=== PATIENT | male | born 1990 | race Caucasian/White ===

== ENCOUNTER 2017-06-22 08:50 | Emergency (ER) | payer SELFPAY ==
[2017-06-22] MEDS ORDERED: ONDANSETRON HCL 4 MG/2 ML SOL ONE (08:52)
[2017-06-22] MEDS ORDERED: PROMETHAZINE HYDROCHLORIDE 25 MG/ML SOL IV ONE (09:00)
[2017-06-22] MEDS ORDERED: ONDANSETRON HCL 4 MG/2 ML SOL IV ONE (09:00)
[2017-06-22] MEDS ORDERED: PROMETHAZINE HYDROCHLORIDE 25 MG/ML SOL ONE (09:00)
[2017-06-22] MEDS ORDERED: SODIUM CHLORIDE 0.9% 1000ML 1,000 ML IV ONE ×3 (09:00→11:55)
[2017-06-22 09:06] LABS: HEMATOCRIT 51 % (39-53); HEMOGLOBIN 17.8 gm/dl (13.5-17.7); MEAN CORPUSCULAR HEMOGLOBIN 30.6 pg (27.0-32.0); MEAN CORPUSCULAR VOLUME 87 fL (80-100)
[2017-06-22] MEDS ORDERED: METOCLOPRAMIDE HYDROCHLORIDE 5 MG/ML SOL IV ONE ×2 (09:13→09:15)
[2017-06-22] MEDS ORDERED: DIPHENHYDRAMINE 50 MG/ML SOL ONE (09:13)
[2017-06-22] MEDS ORDERED: DIPHENHYDRAMINE 50 MG/ML SOL IV ONE ×2 (09:13→09:15)
[2017-06-22] MEDS ORDERED: METOCLOPRAMIDE HYDROCHLORIDE 5 MG/ML SOL ONE (09:13)
[2017-06-22 09:15] LABS: ALBUMIN 4.9 gm/dl (3.4-5.0); BILIRUBIN,TOTAL 0.8 mg/dl (0.2-1.0); CALCIUM 9.4 mg/dl (8.5-10.1); CARBON DIOXIDE 17.2 mEq/L (21-32); CREATININE 1.34 mg/dl (0.80-1.30); POTASSIUM 4.2 mMol/L (3.5-5.1); TOTAL PROTEIN 8.5 gm/dl (6.4-8.2)
[2017-06-22 09:16] LABS: BAND NEUTROPHILS % (MANUAL) 7 %; BASOPHILS % (MANUAL) 0 % (0-3); EOSINOPHILS % (MANUAL) 0 % (0-9); LYMPHOCYTES % (MANUAL) 5 % (10-50); MONOCYTES % (MANUAL) 9 % (0-12); NEUTROPHILS % (MANUAL) 79 % (37-80); NORMAL RBCS PRESENT; PLATELET MORPHOLOGY COMMENT NORMAL
[2017-06-22] MEDS ORDERED: PANTOPRAZOLE SODIUM 40 MG/10 ML PDS IV ONE (09:16)
[2017-06-22] MEDS ORDERED: MORPHINE SULFATE 10 MG/ML SOL IV ONE (09:17)
[2017-06-22] MEDS ORDERED: PANTOPRAZOLE SODIUM 40 MG/10 ML PDS ONE (09:23)
[2017-06-22] MEDS ORDERED: MORPHINE SULFATE 10 MG/ML SOL ONE (09:23)
[2017-06-22 10:07] VITALS: RESP 16
[2017-06-22 10:20] LABS: ABG PH 7.28 (7.35-7.45)
[2017-06-22] MEDS ORDERED: HYDROMORPHONE HCL 2 MG/ML SOL IV ONE (11:00)
[2017-06-22] MEDS ORDERED: HYDROMORPHONE HCL 2 MG/ML SOL ONE (11:06)
[2017-06-22 11:13] VITALS: BP 112/74; PULSE 87; TEMP 97.4; O2SAT 95
[2017-06-22] MEDS ORDERED: SODIUM CHLORIDE 0.9% 1000 ML SOL IV ONE (12:15)
[2017-06-22 12:39] LABS: APPEARANCE,URINE Clear; BILIRUBIN,URINE NEGATIVE (NEGATIVE); COLOR,URINE Yellow; GLUCOSE, URINE (UA) NEGATIVE (NEGATIVE); KETONES,URINE 2+ (NEGATIVE); LEUKOCYTE ESTERASE ,URINE NEGATIVE (NEGATIVE); NITRATE,URINE NEGATIVE (NEGATIVE); OCCULT BLOOD,URINE TRACE LYSED (NEG-TRACE); UROBILINOGEN,URINE 0.2 (0.2-1.0 EU)
[2017-06-22 12:57] LABS: ABG PH 7.3 (7.35-7.45)
[2017-06-22 13:14] LABS: BACTERIA NEGATIVE (< 1+); CRYSTALS NEGATIVE (0-3 AVE/HPF); EPITHELIAL CELLS NEGATIVE (SQUAMOUS); RBC,URINE NEG (0-3AV/HPF); WBC,URINE NEG (0-5AV/HPF)
== END 2017-06-22 13:55 | disposition home or self-care (01) | DRG 392 ==
LOC: ED 08:50
DX: K29.70 Gastritis, unspecified, without bleeding (principal); R11.2 Nausea with vomiting, unspecified
CPT/HCPCS: 36600; 74019; 74177; 80053; 81001; 82803; 85007; 85027; 96365; 96366; 96374; 96375; 99283; 99285; J1170; J1200; J2270; J2405; J2550; J2765; Q9967